=== PATIENT | female | born 1960 | race Caucasian/White ===

== ENCOUNTER 2018-05-23 08:02 | Day surgery (SDC) | payer OTHER ==
[2018-05-23] MEDS ORDERED: PROPOFOL 40 ML (10:13)
== END 2018-05-23 14:37 | disposition home or self-care (01) ==
LOC: GIL 08:02
DX: Z12.11 Encounter for screening for malignant neoplasm of colon (principal); K57.90 Diverticulosis of intestine, part unspecified, without perforation or abscess without bleeding; K64.8 Other hemorrhoids; E03.9 Hypothyroidism, unspecified; I10 Essential (primary) hypertension
CPT/HCPCS: 45380; 88305